=== PATIENT | female | born 1965 | race Caucasian/White ===

== ENCOUNTER 2022-10-19 12:59 | Outpatient (CLI) | payer OTHER, SELFPAY ==
[2022-10-19 19:58] LABS: Basophils Percent Auto 0.6 % (0.2-1.2); Eosinophils Absolute Auto 0.1 K/mm3 (0-0.3); Eosinophils Percent Auto 0.9 % (0-4.4); Hematocrit 39.5 % (37.0-47.0); Immature Granulocyte Absolute 0.08 K/mm3 (0.00-0.031); Immature Granulocyte Percent A 1.2 % (0-0.5); Lymphocytes Absolute Auto 1.89 K/mm3 (0.9-3.2); Lymphocytes Percent Auto 28.9 % (18.3-44.2); Mean Corpuscular HGB Conc 32.9 g/dl (32-36); Mean Corpuscular Hemoglobin 31.5 pg (26-34); Mean Corpuscular Volume 95.6 fl (80-100); Mean Platelet Volume 12.5 fl (7.4-10.4); Monocytes Absolute Auto 0.5 K/mm3 (0.1-0.6); Monocytes Percent Auto 7.5 % (2.6-8.5); Neutrophils Percent Auto 60.9 % (45.5-73.1); Platelet Count Result 219 k/mm3 (150-375); Red Blood Count 4.13 M/mm3 (4.2-5.4); Red Cell Distribution Width 12.4 % (11.5-14.5); White Blood Count 6.6 K/mm3 (4.5-10.0)
[2022-10-19 20:05] LABS: Alanine Aminotransferase 24 U/L (6-35); Albumin Level 4.4 g/dL (3.5-5.1); Alkaline Phosphatase 82 U/L (38-126); Anion Gap 4 mmol/L (8-16); Aspartate Amino Transferase 46 U/L (14-36); Bilirubin,Total 0.6 mg/dL (0.2-1.3); Blood Urea Nitrogen 13 mg/dL (7-17); Calcium 9.2 mg/dL (8.4-10.2); Carbon Dioxide 31 mmol/L (22-30); Chloride 102 mmol/L (98-107); Cholesterol 168 mg/dL (0-200); Estimated Glomerular Filt Rate > 60; Glucose 85 mg/dL (65-110); HDL Direct 69 mg/dL; Potassium 4.5 mmol/L (3.4-5.0); Sodium 137 mmol/L (137-145); Triglycerides 58 mg/dL (<150)
[2022-10-19 20:16] LABS: LDL Cholesterol Direct 62 mg/dL
== END 2022-10-19 13:00 | disposition home or self-care (01) ==
PROVIDERS: PCP Family Medicine; Visit Provider Family Medicine
DX: Z00.00 Encounter for general adult medical examination without abnormal findings (principal)
CPT/HCPCS: 36415; 80053; 80061; 85025

== ENCOUNTER 2023-12-16 14:37 | Outpatient (CLI) | payer OTHER, SELFPAY ==
[2023-12-16 18:34] LABS: Hematocrit 42.9 % (37.0-47.0); Hemoglobin 13.4 g/dL (12.0-15.0); Mean Corpuscular HGB Conc 31.2 g/dl (32-36); Mean Corpuscular Hemoglobin 30.5 pg (26-34); Mean Corpuscular Volume 97.7 fl (80-100); Mean Platelet Volume 12.7 fl (7.4-10.4); Platelet Count Result 238 k/mm3 (150-375); Red Blood Count 4.39 M/mm3 (4.2-5.4); White Blood Count 7.2 K/mm3 (4.5-10.0)
[2023-12-16 19:27] LABS: Alanine Aminotransferase 25 U/L (6-35); Albumin Level 4.7 g/dL (3.5-5.1); Alkaline Phosphatase 76 U/L (38-126); Anion Gap 6 mmol/L (4-12); Aspartate Amino Transferase 50 U/L (14-36); Bilirubin,Total 0.6 mg/dL (0.2-1.3); Blood Urea Nitrogen 17 mg/dL (7-17); Calcium 9.2 mg/dL (8.4-10.2); Carbon Dioxide 29 mmol/L (22-30); Chloride 103 mmol/L (98-107); Cholesterol 176 mg/dL (0-200); Estimated Glomerular Filt Rate > 60; Glucose 83 mg/dL (65-110); HDL Direct 83 mg/dL; Potassium 4.1 mmol/L (3.4-5.0); Sodium 138 mmol/L (137-145); Triglycerides 60 mg/dL (<150)
[2023-12-16 19:38] LABS: LDL Cholesterol Direct 69 mg/dL
[2023-12-16 19:40] LABS: Vitamin D 25 Hydroxy 53.9 ng/mL
[2023-12-16 20:30] LABS: Folic Acid 11.8 ng/mL (2.76->20)
== END 2023-12-16 14:38 | disposition home or self-care (01) ==
LOC: ANHBWCLAB 14:39
PROVIDERS: PCP Nurse Practitioner Adult Health; Visit Provider Family Medicine
DX: Z00.00 Encounter for general adult medical examination without abnormal findings (principal)
CPT/HCPCS: 36415; 80053; 80061; 82306; 82607; 82746; 85027

== ENCOUNTER 2025-01-12 10:20 | Outpatient (CLI) | payer OTHER, SELFPAY ==
--- OUTSIDE RECORDS SUMMARY | 2025-01-12 10:31 | XMS_ITS | Clinical Summary ---
Author Organization [facility] Address [address] [place] [address] Phone Care Team Providers Care Field Crop Farmer Name Role Phone Sánchez Reyna MD Primary Care Provider [phone] Allergies No known active allergies Medications Progesterone (PROMETRIUM) 100 MG Capsule 1 Active methylPREDNISol one (Medrol) 4 MG Tablet Therapy PackIndications :Allergic reaction, initial encounter Use as per instructions on package. 21 Tablet 2 Active Active Problems No known active problems Immunizations Immunization Administration Dates Next Due Covid-19, Mrna, Lnp-s, Pf, 1 00 Mcg Or 50 Mcg Dose (MODERNA) 05/23/2021,09/09/2020,08/05/2020 Social History Tobacco Use Types Packs/Day Years Used Date Smoking Tobacco: Never Smokeless Tobacco: Never Alcohol Use Standard Drinks/Week Comments Yes 0 (1 standard drink = 0.6 oz pur e alcohol) not much Comments No Sex and Gender Information Value Date Recorded Sex Assigned at Not on file Legal Sex Female 8:49 PM CDT Gender Identity Not on file Sexual Orientation Not on file Last Filed Vital Signs Vital Sign Reading Time Taken Comments Blood Pressure 116/72 11/17/2021 4:10 PM CDT Pulse 63 11/17/2021 4:10 PM CDT Temperature 36.5 C (97.7 F) 11/17/2021 4:10 PM CDT Respiratory Rate 16 11/17/2021 4:10 PM CDT Oxygen Saturation 100% 11/17/2021 4:10 PM CDT Inhaled Oxygen Concentration - - Weight - - Height - - Body Mass Index - - Plan of Treatment Health Maintenance Due Date Last Done Comments Hepatitis C Virus (HCV) Screening 1967 TdaP Immunization 1967 Hepatitis B Immunization (1 of 3 - 19+ 3-dose series) 1986 Pap Smear 1988 Cervical Cancer Screening (CCS) 1997 HPV/Cotest 1997 Cologuard 2012 Pneumococcal Immunization (50+ years) (1 of 1 - PCV) 2017 Zoster Immunization (1 of 2) 2017 Immunochemical Fecal Occult Blood 02/14/2022 02/14/2021, 02/10/2020, 02/02/2019 SARS-COV-2 Immunization ( season) 2024 04/24/2023, 05/23/2021, 09/09/2020, Additional history exists Influenza Immunization (Season Ended) 2025 Mammogram 08/17/2025 08/17/2024, 07/15, 06/06/2022, Additional history exists Colonoscopy 08/29/2033 08/29/2023 Colorectal Cancer Screening 08/29/2033 Respiratory Syncytial Virus (RSV) Immunization (Adult) (1 - 1-dose 75+ series) 2042 DTaP/Tdap/Td Immunization Discontinued 05/14/2008 Human Papillomavirus (HPV) Immunization Aged Out No longer eligible based on patient's age to complete this topic Meningococcal Immunization (ACWY) Aged Out No longer eligible based on patient's age to complete this topic Rotavirus Immunization Aged Out No lo nger eligible based on patient's age to complete this topic Procedures Procedure Name Priority Date/Time Associated Diagnosis Comments HOOD SCREENING BILATERAL DIGITAL W CAD W KARAN Routine 08/17/2024 4:33 PM MOBILE PHONE SALESPERSON Visit for screening mammogram from Last 3 Months or Most Recently Relevant to Health Maintenance Results * HOOD SCREENING BILATERAL DIGITAL W CAD W KARAN (08/17/2024 4:33 PM MOBILE PHONE SALESPERSON) Anatomical Region Laterality Modality breast Bilateral Mammography 08/17/2024 4:10 PM MOBILE PHONE SALESPERSON Narrative 08/19/2024 2:23 PM MOBILE PHONE SALESPERSON - HOOD SCREENING BILATERAL DIGITAL W CAD W KARAN BILATERAL DIGITAL SCREENING MAMMOGRAM 3D/2D WITH CAD WITH MEDIOLATERAL OBLIQUE CRANIOCAUDAL: 08/17/2024 The study was acquired using digital technology and interpreted from soft copy. Current study was also evaluated with ICAD version 7.2. 2D digital mammographic views, as well as 3D digital tomosynthesis were performed in the CC and MLO projections. CLINICAL: Routine screening. Patient has no complaints. No personal history of cancer. No family history of breast cancer. COMPARISONS: Comparison is made to exams dated: 07/30/2023, 06/06/2022, and [facility]. BREAST TISSUE:There are scattered areas of fibroglandular density. FINDINGS: No significant masses, calcifications, or other findings are seen in either breast. There has been no significant interval change. IMPRESSION: NEGATIVE There is no mammographic evidence of malignancy. A 1 year screening mammogram is recommended. A letter will be sent to the patient with these results. The patient will be entered into a reminder system with a target due date of 1 year for her next screening exam. Electronically signed by: Vamshi keyes/jose:08/19/2024 10:33:53 Metaphysicist(s): RT Ozzy(R)(M), [facility] letter sent: Normal Exam Reading location: MIN Mammogram BI-RADS: Category 1: Negative Procedure Note Vamshi Magana MD - 08/19/2024 - HOOD SCREENING BILATERAL DIGITAL W CAD W KARAN BILATERAL DIGITAL SCREENING MAMMOGRAM 3D/2D WITH CAD WITH MEDIOLATERAL OBLIQUE CRANIOCAUDAL: 08/17/2024 The study was acquired using digital technology and interpreted from soft copy. Current study was also evaluated with ICAD version 7.2. 2D digital mammographic views, as well as 3D digital tomosynthesis were performed in the CC and MLO projections. CLINICAL: Routine screening. Patient has no complaints. No personal history of cancer. No family history of breast cancer. COMPARISONS: Comparison is made to exams dated: 07/30/2023, 06/06/2022, and 03/30/2021 [facility]. BREAST TISSUE:There are scattered areas of fibroglandular density. FINDINGS: No significant masses, calcifications, or other findings are seen in either breast. There has been no significant interval change. IMPRESSION: NEGATIVE There is no mammographic evidence of malignancy. A 1 year screening mammogram is recommended. A letter will be sent to the patient with these results. The patient will be entered into a reminder system with a target due date of 1 year for her next screening exam. Electronically signed by: Vamshi keyes/jose:08/19/2024 10:33:53 Metaphysicist(s): RT Ozzy(R)(M), [facility] letter sent: Normal Exam Reading location: MIN Mammogram BI-RADS: Category 1: Negative us Sánchez Reyna MD IMG MAMMO ORDERABLES Final Resu lt from Last 3 Months or Most Recently Relevant to Health Maintenance Insurance [facility] Care Teams Field Crop Farmer Relationship Specialty Start Date End Date Sánchez Reyna MD [address] [place] [id number] PCP - General Family Medicine 07/30/23
--- OUTSIDE RECORDS SUMMARY | 2025-01-12 10:31 | XMS_ITS | Clinical Summary ---
Author Organization [facility] Address [address] [place] [address] Care Team Providers Care Soil Chemist Name Role Phone Unavailable Primary Care Provider Unavailabl e Source Comments [facility],non-owned Affiliates and Associated Physician Practices is amultiple site organization consisting of ambulatory clinics and hospital sitesin [place], [place], [place] and [place]. This disclosure is being madepursuant to the Care Everywhere program and may not contain all information available regarding this patient. Last updated 18.[facility] Social History Tobacco Use Types Packs/Day Years Used Date Smoking Tobacco: Never Assessed Comments Unknown Sex and Gender Information Value Date Recorded Sex Assigned at Not on file Legal Sex Female 10:58 AM CDT Gender Identity Not on file Sexual Orientation Not on file Plan of Treatment Health Maintenance Due Date Last Done Comments COLOGUARD (AGES 45-75) - COL ON CA SCREENING 1967 COLON MONITORING 1967 COLONOSCOPY - COLON CA SCREENING 1967 CT COLONOGRAPHY - COLON CA SCREENING 1967 Colorectal Cancer Screening 1967 FIT - COLON CA SCREENING 1967 FLEX SIG - COLON CA SCREENING 1967 LIPID TESTING 1967 MAMMOGRAM 1967 HIV SCREENING 1982 HEPATITIS C SCREENING 04/14/1985 DTAP/TDAP/TD VACCINES (1 - Tdap) 1986 HEPATITIS B VACCINE (1 of 3 - 19+ 3-dose series) 1986 PNEUMOCOCCAL VACCINE 50+ (1 of 1 - PCV) 2017 ZOSTER VACCINE (1 of 2) 2017 COVID-19 VACCINE ( - 2023-2 5 season) 2024 DEPRESSION SCREENING 07/15/2024 INFLUENZA VACCINE (Season Ended) 2025 HIB VACCINE Aged Out No longer eligi ble based on patient's age to complete this topic HPV VACCINE Aged Out No longer eligi ble based on patient's age to complete this topic MENINGOCOCCAL (Group B) VACC INE SHARED DECISION-MAKING Aged Out No longer eligibl e based on patient's age to complete this topic MENINGOCOCCAL GROUPS A/C/Y/W VACCINE Aged Out No longer eligible b ased on patient's age to complete this topic Insurance [facility]
--- OUTSIDE RECORDS SUMMARY | 2025-01-12 10:31 | XMS_ITS | Encounter Summary ---
Author Organization [facility] Address [address] [place] [address] Care Team Providers Care Quartz Cutter Name Role Phone Unavailable Primary Care Provider Unavailabl e Encounter Details Date Type Department Care Team (Late st Contact Info) Description 11/10/2021 Lab Requisition [facility] [address] [place] [id number] Dannie Jackson MD [facility] [address] [address] Social History Tobacco Use Types Packs/Day Years Used Date Smoking Tobacco: Never Assessed Comments Unknown Sex and Gender Information Value Date Recorded Sex Assigned at Not on file Legal Sex Female 10:58 AM CDT Gender Identity Not on file Sexual Orientation Not on file documented as of this encounter Plan of Treatment Not on file documented as of this encounter Procedures Procedure Name Priority Date/Time Associated Diagnosis Comments DERMATOPATHOLOGY Routine 11/08/2021 12:0 0 AM CDT documented in this encounter Results * DERMATOPATHOLOGY (11/08/2021 12:00 AM CDT) Case Report Dermatopathology Report Case: [id number] Authorizing Provider: Dannie Jackson MD Collected: 11/08/2021 12:00 AM Ordering Location: [facility] Received: 11/10/2021 11:10 AM Pathologist: Daphnie Enrique MD Specimen: Skin, mid upper back 2 4:29 PM CDT DERMATOPATHOLOGY LABORATORY Final Diagnosis Specimen A. 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 2 4:29 PM CDT DERMATOPATHOLOGY LABORATORY Gross Description Specimen A: Received is one formalin filled container labeled with the patient's name and designated mid upper back. The specimen consists of a shave biopsy measuring [id number]. Jar 0. 4:29 PM CDT DERMATOPATHOLOGY LABORATORY Microscopic Description Specimen A. SKIN, mid upper back: This is a compound nevus. There is melanin pigment in the stratum corneum. There is architectural disorder characterized by a lentiginous proliferation of melanocytes between irregular nevus nests of cells along the dermal epidermal junction. There is underlying fibroplasia of the papillary dermis. The intradermal component is bland in appearance and matures with depth. (Compound Narciso's Nevus or Compound Dysplastic Nevus) 4:29 PM CDT DERMATOPATHOLOGY LABORATORY Disclaimer An external and internal positive and negative controls are appropriate for the histochemical, immunohistochemical and immunofluorescence stain(s) in this case (if any), except where stated explicitly. The performance characteristics of the stain(s) cited in this report were developed and its performance characteristic determined by the Dermatopathology Laboratory at [facility], directed by Dr. Oz Sanchez. These tests need not be, and therefore are not, approved by the [place] Food and Drug Administration. The tests are used for clinical purposes. Billing Codes Specimen Charges Stain Charges 22749 1 2 4:29 PM CDT DERMATOPATHOLOGY LABORATORY Embedded Images 2 4:29 PM CDT DERMATOPATHOLOGY LABORATORY Pathology/Cytolog y TISSUE SPECIMEN FROM SKIN / Unknown 11/08/2021 11/10/2021 11:10 AM CDT Dannie Jackson MD LAB - PATHOLOGY/CYTOLOGY ORDERAB LES Final Result DERMATOPATHOLOGY LABORATORY [facility] - Department of Dermatology [address], [address] [phone] documented in this encounter Visit Diagnoses Not on filedocumented in this encounter
--- OUTSIDE RECORDS SUMMARY | 2025-01-12 10:31 | XMS_ITS | Clinical Summary ---
Author Organization [facility] [address] Address [address] [place] [address] Care Team Providers Care Luggage Liner Name Role Phone Sánchez Reyna MD Primary Care Provider [phone] Eb Grant MD Unavailable [phone] Allergies No known active allergies Medications traZODone (DESYREL) 50 mg tablet Take 1 tablet (50 mg total) by mouth nightly as needed 3 Active UNABLE TO FIND 4 (four) times a week Med Name: E2-E3 estrogen cream Active cholecalciferol 25 mcg (1,000 unit) tablet Take 1 tablet (1,000 Units total) by mouth daily Active cream base no.9, bulk, cream 0.2% Testosterone cream. Apply 1 mL to inner wrist or thigh daily 30 g 1 5 Active cream base no.52, bulk, cream 0.2% Estrogen cream E2-E3. Apply 1mL to inner wrist or thigh daily or as needed 30 g 1 5 Active progesterone (PROMETRIUM) 100 mg capsuleIndicati ons:Endometrial Hyperplasia Prevention TAKE 1 CAPSULE AT BEDTIME, DAYS 1-12 OF EACH MONTH. 36 capsule 3 5 Active Active Problems Problem Noted Date Diagnosed Date Hormone replacement therapy 10/19/2024 Assessment & Plan (10/19/2024 2:27 AM CDT): Risks and benefits of hormone replacement (HRT) for vasomotor symptoms related to menopause discussed. Patient aware risks associated with HRT include increased risk of blood clots, heart attack, stroke, and increased risk of breast cancer. Patient verbalizes understanding of risk and benefits and wishes to proceed with HRT. Encounter for screening colonoscopy 07/02/2023 Aftercare following left hip joint replacement s anna 01/02/2023 Resolved Problems Problem Noted Date Diagnosed Date Resolved Date Primary osteoarthritis of left hip 12/12/2022 01/02/2023 Encounters Date Type Department Care Team Description 10/14/2024 2:15 PM CDT Office Visit [facility] [address] [place] [address] Lisa Bae NP Well woman exam (Primary Dx); Hormone replacement therapy 10/14/2024 Telephone [employer] 4 [facility] [address] [place] [address] Lisa Bae NP from Last 3 Months Surgical History Surgery Date Site/Laterality Comments TOTAL HIP ARTHROPLASTY Left COLONOSCOPY 08/29/2023 Medical History Medical History Date Comments GERD (gastroesophageal reflux disease) Irregular menses Family History Medical History Relation Name Comments No Known Problems Father No Known Problems Mother Cancer Paternal Grandfather Relation Name Status Comments Father Mother Paternal Grandfather Social History Tobacco Use Types Packs/Day Years Used Date Smoking Tobacco: Never Smokeless Tobacco: Never Tobacco Cessation:Counseling Given: Not Answered Alcohol Use Standard Drinks/Week Comments Yes 0 (1 standard drink = 0.6 oz pur e alcohol) Social Humiliation, Afraid, Rape, and Kick questionnair e Answer Date Recorded Within the last year, have y ou been afraid of your partner or ex-partner? No 07/01/2023 Within the last year, have y ou been humiliated or emotionally abused in other ways by your partner or ex-partner? No Within the last year, have y ou been kicked, hit, slapped, or otherwise physically hurt by your partner or ex-partner? No 07/01/2023 Within the last year, have y ou been raped or forced to have any kind of sexual activity by your partner or ex-partner? No 07/01/2023 AUDIT-C Answer Date Recorded Q1: How often do you have a drink containing alc ohol? 2-4 times a month 08/28/2023 Q2: How many drinks containi ng alcohol do you have on a typical day when you are drinking? 1 or 2 08/28/2023 Q3: How often do you have si x or more drinks on one occasion? Never 08/28/2023 PHQ-2 Answer Date Recorded PHQ-2 Total Score (If total score is 3 or more points, staff should administer the PHQ-9) 0 10/14/2024 Personal Safety Answer Date Recorded Have you ever been in or are you currently in a harmful physical or emotional relationship or is someone making you feel afraid or unsafe? Denies 08/29/2023 Comments No Sex and Gender Information Value Date Recorded Sex Assigned at Not on file Legal Sex Female 9:59 AM MANAGER COST Gender Identity Not on file Sexual Orientation Not on file Obstetrics History Para Term AB IAB SAB Ectopic Multiple Livin g Live Births 0 0 0 0 0 0 0 0 0 0 0 Last Filed Vital Signs Vital Sign Reading Time Taken Comments Blood Pressure 108/72 10/14/2024 2:09 PM CDT Pulse 78 07/09/2024 10:57 AM MANAGER COST Temperature 36.9 C (98.5 F) 07/09/2024 10:57 AM MANAGER COST Respiratory Rate 20 07/09/2024 10:57 AM MANAGER COST Oxygen Saturation 96% 07/09/2024 10:57 AM MANAGER COST Inhaled Oxygen Concentration - - Weight 67.1 kg (148 lb) 10/14/2024 2:09 PM CDT Height 160 cm (5' 3) 10/14/2024 2:09 PM CDT Body Mass Index 26.22 10/14/2024 2:09 PM CDT Plan of Treatment Health Maintenance Due Date Last Done Comments Hepatitis C Screening 1965 Hepatitis B Screening 1985 DTaP/Tdap/Td Vaccine (1 - Tdap) 05/15/2008 05/14/2008 Zoster Vaccine (1 of 2) 2017 Covid-19 Vaccine ( season) 2024 05/23/2021, 09/09/2020, 08/05/2020 Cervical Cancer Screening 07/01/2024 07/01/2023, 09/2020 Influenza Vaccine (#1) 2025 Breast Cancer Screening-Mammogram 08/17/2025 08/17/2024, 08/17/2024, 07/30/2023, Additional history exists Depression Screening 10/14/2025 10/14/2024, 02/22/2022, 02/14/2021, Additional history exists Regular Well Visit/Exam 18-64 10/14/2025 10/14/2024, 02/22/2022, 02/14/2021, Additional history exists Colon Cancer Screening-Colonoscopy 08/29/2033 08/29/2023 Colon Cancer Screening-CT Colonography Discontinued 08/29/2023 Colon Cancer Screening-DNA Stool Discontinued 08/29/2023 Colon Cancer Screening-FIT Discontinued 08/29/2023 Colon Cancer Screening-Sigmoidoscopy Discontinued 08/29/2023 Pneumococcal vaccine <65 Aged Out No longer eligible based on patient's age to complete this topic Medical Devices Implanted Type Area Snow Removal Supervisor Device Identifier Shelf Expiration Date Model / Serial / Lot Depuy [employer] [place] 52mm 36mm Hip Neutral Liner Acetabular Altrx Sterile Latex Free [id number] - [id number] Implanted:Qty: 1 on 12/24/2022 by Eb Grant MD at [facility] Left: Hip [employer] [id number] 10/13/2027 [id number] / / [id number] Depuy [employer] [place] 52mm Sector Hip Shell Acetabular Gription Sterile Latex Free [id number] - [id number] Implanted:Qty: 1 on 12/24/2022 by Eb Grant MD at [facility] Left: Hip [employer] [id number] 09/11/2032 [id number] / / [id number] Depuy [employer] [place] 6.5mm 35mm Acetabular Cancellous Screw Bone Sterile 1217-35-500 - [id number] Implanted:Qty: 1 on 12/24/2022 by Eb Grant MD at [facility] Left: Hip [employer] [id number] 08/14/2032 1217-35-500 / / [id number] Depuy [employer] Actis 105mm Collar Hip 5 Standard Offset Stem Femoral 1010-11-050 - [id number] Implanted:Qty: 1 on 12/24/2022 by Eb Grant MD at [facility] Left: Hip [employer] [id number] 05/14/2032 1010-11-050 / / [id number] Depuy [employer] Inc Articul/[place] 36mm Cementless Hip +5mm 06/27 Taper Head Femoral Latex Free [id number] - [id number] Implanted:Qty: 1 on 12/24/2022 by Eb Grant MD at [facility] Left: Hip [employer] [id number] 09/12/2027 [id number] / / [id number] Procedures Procedure Name Priority Date/Time Associated Diagnosis Comments COLONOSCOPY 08/29/2023 9:11 AM MANAGER COST PAP AND HPV, REFLEX TO HPV GENOTYPES Routine 07/01/2023 3:03 PM MANAGER COST Well woman exam with routine gynecological exam MAMMOGRAPHY Schedule Routine, Read Routine (OP Routine) 06/06/2022 from Last 3 Months or Most Recently Relevant to Health Maintenance Results * COLONOSCOPY (08/29/2023 9:11 AM MANAGER COST) Anatomical Region Laterality Modality Other Narrative Procedure Note Cherry Martinez MD - 08/29/2023 9:11 AM CST [facility] Patient Name: Antonette Dalton Procedure Date: 08/29/2023 9:11 AM Date of : 1965 Admit Type: Outpatient Age: 58 Gender: Female Attending MD: Cherry Martinez M.D. Room: [facility] END[facility] 2 Note Status: Finalized Patient Profile: This is a 58 year old female with no significantpmhx here for colonoscopy for colon cancer screening. No family hx of colon cancer and no priorcolonoscopies. Procedure: Colonoscopy Indications: Screening for colorectal malignant neoplasm, Thisis the patient's first colonoscopy Referring MD: Sánchez Reyna M.D. Providers: Cherry Martinez M.D. Impression: - Melanosis in the colon. - External and internal hemorrhoids. - No specimens collected. Recommendation: - Patient has a contact number available for emergencies. The signs and symptoms of potential delayed complications were discussed with thepatient. Return to normal activities tomorrow. Written discharge instructions were provided to thepatient. - Discharge patient to home (with escort). - Resume previous diet. - Continue present medications. - Avoid stimulant laxatives such as Senna - Repeat colonoscopy in 7 years for screeningpurposes. - Return to primary care physician as previously scheduled. Medicines: Monitored Anesthesia Care Complications: No immediate complications. Estimated Blood Loss: Estimated blood loss: none. Estimated blood loss:none. Procedure: Pre-Anesthesia Assessment: - Prior to the procedure, a History and Physicalwas performed, and patient medications and allergieswere reviewed. The patient is competent. The risks and benefits of the procedure and the sedation optionsand risks were discussed with the patient. Allquestions were answered and informed consent was obtained. Patient identification and proposed procedure were verified by the physician, the mental hygienist and the security systems technician in the endoscopy suite. Mental Status Examination: normal. Prophylactic Antibiotics: The patient does not require prophylactic antibiotics. Prior Anticoagulants: The patient has taken no anticoagulant or antiplatelet agents. Afterreviewing the risks and benefits, the patient was deemed in satisfactory condition to undergo the procedure.The anesthesia plan was to use monitored anesthesiacare (MAC). Immediately prior to administration of medications, the patient was re-assessed foradequacy to receive sedatives. The heart rate, respiratory rate, oxygen saturations, blood pressure, adequacyof pulmonary ventilation, and response to care were monitored throughout the procedure. The physical status of the patient was re-assessed after the procedure. The benefits, risks and alternatives of theprocedure and sedation were discussed and informed consentwas obtained. All questions were answered. Please referto the signed informed consent document in the medical record. The bowel preparation used was Miralax and bisacodyl tablets via split dose instruction. The scope was passed under direct vision. The Pediatric Colonoscope PCF-H190L [id number] was introducedthrough the anus and advanced to the the cecum, identifiedby appendiceal orifice and ileocecal valve. The colonoscopy was performed without difficulty. The patient tolerated the procedure well. The qualityof the bowel preparation was good. Bowel prep was administered using a split dose. Findings: The perianal and digital rectal examinations were normal. A diffuse area of severe melanosis was found in the entire colon. External and internal hemorrhoids were found during retroflexion and during endoscopy. Cherry Martinez M.D. 08/29/2023 10:19:39 AM Number of Addenda: 0 Note Initiated On: 08/29/2023 9:11 AM Procedure Code(s): --- Professional --- G0121, Colorectal cancer screening; colonoscopy on individual not meeting criteria for high risk --- Technical --- G0121, Colorectal cancer screening; colonoscopy on individual not meeting criteria for high risk Diagnosis Code(s): --- Professional --- Z12.11, Encounter for screening for malignant neoplasm of colon K63.89, Other specified diseases of intestine --- Technical --- Z12.11, Encounter for screening for malignant neoplasm of colon K63.89, Other specified diseases of intestine CPT copyright 2020 [employer]. All rights reserved. The codes documented in this report are preliminary and upon registration coordinator reviewmay be revised to meet current compliance requirements. Recognized by the [employer] for promoting quality in endoscopy us Cherry Martinez MD ENDOSCOPY PROCEDURES Final Resul t * Pap and HPV, reflex to HPV Genotypes (07/01/2023 3:03 PM MANAGER COST) Clinical indication Comment [facility] - 01 Comment:NEGATIVE FOR INTRAEP ITHELIAL LESION OR MALIGNANCY. Specimen adequacy: Comment [facility] - 01 Comment: Satisfactory for evaluation. Endocervical and/or squamous metaplastic cells (endocervical component) are present. Clinician provided ICD10 Comment [facility] - 01 Comment:Z01.419 Performed by Comment [facility] - 01 Comment:Lionel Hadley, Cytot echnologist (ASCP) . . [facility] - 01 Note: Comment [facility] - 01 Comment: The Pap smear is a screening test designed to aid in the detection of premalignant and malignant conditions of the uterine cervix. It is not a diagnostic procedure and should not be used as the sole means of detecting cervical cancer. Both false-positive and false-negative reports do occur. Test methodology Comment [facility] - 01 Comment: This liquid based ThinPrep(R) pap test was screened with the use of an image guided system. HPV Aptima Negative Negative [facility] 02 Comment: This nucleic acid amplification test detects fourteen high-risk HPV types (16,18,31,33,35,39,45,51,52,56,58,59,66,68) without differentiation. HPV Genotype Reflex Comment [facility] - 01 Comment:Criteria not met, HP V Genotype not performed. Thin prep 07/01/2023 3:03 PM MANAGER COST 07/02/2023 Narrative [facility] - 07/03/2023 2:11 PM MANAGER COST Performed at: 01 - [facility] [id number] Sales And Marketing Intern: Sangeetha Mackey MD, Phone: [phone] Performed at: 02 - [facility] [id number] Sales And Marketing Intern: Sangeetha Mackey MD, Phone: [phone] Specimen Comment: No. of containers..01 ThinPrep Vial us Lolis Rendon NP LAB CYTOLOGY ORDERABLES Final Re sult [facility] - 01 [facility] 02 * MAMMOGRAPHY (06/06/2022) Anatomical Region Laterality Modality Breast Mammography Becky Ann TIME CYCLE OPERATOR IMG MAMMO PROCEDURES Demi l Result from Last 3 Months or Most Recently Relevant to Health Maintenance Insurance [facility] OPEN ACCESS Advance Directives For more information, please contact: [phone] * Full Code (Latest Code Status on File) Date Activated Date Inactivated Comments 08/29/2023 9:13 AM 08/29/2023 2:54 PM * Full Code Date Activated Date Inactivated Comments 08/29/2023 9:13 AM 08/29/2023 9:13 AM * Full Code Date Activated Date Inactivated Comments 12/24/2022 10:42 AM 12/24/2022 7:47 PM Care Teams Luggage Liner Relationship Specialty Start Date End Date Sánchez Reyna MD PCP - General Family Practice 12/05/22 Eb Grant MD [address] [place] [address] [place] [address] Surgeon Orthopedic Surgery 12/24/22
--- OUTSIDE RECORDS SUMMARY | 2025-01-12 10:31 | XMS_ITS | Referral Summary ---
Author Organization [facility] B Address [address] [place] [address] Care Team Providers Care Tip Out Worker Name Role Phone Sánchez Reyna MD Primary Care Provider [phone] Eb Grant MD Unavailable [phone] Encounters Date Type Department Care Team Description 10/14/2024 Telephone [employer] [address] [facility] [address] [place] [address] Lisa Bae NP 10/14/2024 2:15 PM CDT Office Visit [employer] [address] [place] [address] [address] [place] [address] Lisa Bae NP Well woman exam (Primary Dx); Hormone replacement therapy from Last 3 Months Allergies No known active allergies Medications traZODone [...] Primary osteoarthritis of left hip 12/12/2022 01/02/2023 Social History Tobacco Use Types Packs/Day Years [...] on file Legal Sex Female 9:59 AM MOISTURE CONDITIONER OPERATOR Gender Identity Not on file Sexual Orientation Not on file Last Filed Vital Signs Vital Sign Reading Time Taken Comments Blood Pressure 108/72 10/14/2024 2:09 PM CDT Pulse 78 07/09/2024 10:57 AM MOISTURE CONDITIONER OPERATOR Temperature 36.9 C (98.5 F) 07/09/2024 10:57 AM MOISTURE CONDITIONER OPERATOR Respiratory Rate 20 07/09/2024 10:57 AM MOISTURE CONDITIONER OPERATOR Oxygen Saturation 96% 07/09/2024 10:57 AM MOISTURE CONDITIONER OPERATOR Inhaled Oxygen Concentration - - Weight 67.1 kg (148 lb) 10/14/2024 2:09 PM CDT Height 160 cm (5' 3) 10/14/2024 2:09 PM CDT Body Mass Index 26.22 10/14/2024 2:09 PM CDT Plan of Treatment Not on file Medical Devices Implanted Type Area Jail Officer Device Identifier Shelf Expiration Date Model / Serial / Lot Depuy [employer] [place] 52mm 36mm Hip Neutral Liner Acetabular Altrx Sterile Latex Free [id number] - [id number] Implanted:Qty: 1 on 12/24/2022 by Eb Grant MD at [facility] Left: Hip [employer]uy [employer] Inc [id number] 10/13/2027 [id number] / / [id number] Dep[employer] [place] 52mm Sector Hip Shell Acetabular Gription Sterile Latex Free [id number] - [id number] Implanted:Qty: 1 on 12/24/2022 by Eb Grant MD at [facility] Left: Hip [employer]uy [employer] Inc [id number] 09/11/2032 [id number] / / [id number] Depuy [employer] [place] 6.5mm 35mm Acetabular Cancellous Screw Bone Sterile 1217-35-500 - [id number] Implanted:Qty: 1 on 12/24/2022 by Eb Grant MD at [facility] Left: Hip [employer]uy [employer] Inc [id number] 08/14/2032 1217-35-500 / / [id number] Depuy [employer] Actis 105mm Collar Hip 5 Standard Offset Stem Femoral 1010--050 - [id number] Implanted:Qty: 1 on 12/24/2022 by Eb Grant MD at [facility] Left: Hip Depuy [employer] Inc [id number] 05/14/2032 101-050 / / [id number] Depuy [employer] Articul/[place] 36mm Cementless Hip +5mm 06/27 Taper Head Femoral Latex Free [id number] - [id number] Implanted:Qty: 1 on 12/24/2022 by Eb Grant MD at [facility] Left: Hip [employer]uy [employer] Inc [id number] 09/12/2027 [id number] / / [id number] Procedures Procedure Name Priority Date/Time Associated Diagnosis Comments COLONOSCOPY 08/29/2023 9:11 AM MOISTURE CONDITIONER OPERATOR PAP AND HPV, REFLEX TO HPV GENOTYPES Routine 07/01/2023 3:03 PM MOISTURE CONDITIONER OPERATOR Well woman exam with routine gynecological exam MAMMOGRAPHY Schedule Routine, Read Routine (OP Routine) 06/06/2022 from Last 3 Months or Most Recently Relevant to Health Maintenance Results * COLONOSCOPY (08/29/2023 9:11 AM MOISTURE CONDITIONER OPERATOR) Anatomical Region Laterality Modality Other Narrative Procedure Note Cherry Martinez MD - 08/29/2023 9:11 AM CST [facility] Patient Name: Antonette Dalton Procedure Date: 08/29/2023 9:11 AM Date of : 1965 Admit Type: Outpatient Age: 58 Gender: Female Attending MD: Cherry Martinez M.D. Room: [facility] ENDOSCOPY ROOM 2 Note Status: Finalized Patient [...] procedure were verified by the physician, the latex ribbon machine operator and the fish and wildlife technician in the endoscopy suite. Mental Status [...] under direct vision. The Pediatric Colonoscope PCF-H190L [id number] was introducedthrough the anus and advanced to [...] in this report are preliminary and upon helicopter utility aircrewman reviewmay be revised to meet current compliance requirements. Recognized by the [employer] for promoting quality in endoscopy Cherry Martinez MD ENDOSCOPY PROCEDURES Final Resul t * Pap and HPV, reflex to HPV Genotypes (07/01/2023 3:03 PM MOISTURE CONDITIONER OPERATOR) Clinical indication Comment [facility] - 01 Comment:NEGATIVE [...] not performed. Thin prep 07/01/2023 3:03 PM MOISTURE CONDITIONER OPERATOR 07/02/2023 Narrative [facility] - 07/03/2023 2:11 PM MOISTURE CONDITIONER OPERATOR Performed at: - [address] [id number] Jewel Oliving Machine Operator: Sangeetha Mackey MD, Phone: [phone] Performed at: - [address] [id number] Jewel Oliving Machine Operator: Sangeetha Mackey MD, Phone: [phone] Specimen Comment: No. of containers..01 ThinPrep Vial us Lolis Rendon NP LAB CYTOLOGY ORDERABLES Final Re sult [facility] - 01 [facility] 02 * MAMMOGRAPHY (06/06/2022) Anatomical Region Laterality Modality Breast Mammography us Becky Ann TRANSIT PLANNER IMG MAMMO PROCEDURES Demi l Result from Last 3 Months or Most Recently Relevant to Health Maintenance Insurance [employer] OPEN ACCESS Advance Directives For more information, please contact: [phone] * Full Code (Latest Code Status on File) Date Activated Date Inactivated Comments 08/29/2023 9:13 AM 08/29/2023 2:54 PM * Full Code Date Activated Date Inactivated Comments 08/29/2023 9:13 AM 08/29/2023 9:13 AM * Full Code Date Activated Date Inactivated Comments 12/24/2022 10:42 AM 12/24/2022 7:47 PM Care Teams Tip Out Worker Relationship Specialty Start Date End Date Sánchez Reyna MD PCP - General Family Practice 12/05/22 Eb Grant MD [address] [place] [address] DR [place] [address] [place] [address] Surgeon Orthopedic Surgery 12/24/22
[2025-01-12 18:55] LABS: Hematocrit 41.3 % (37.0-47.0); Hemoglobin 12.9 g/dL (12.0-15.0); Mean Corpuscular HGB Conc 31.2 g/dl (32-36); Mean Corpuscular Hemoglobin 30.3 pg (26-34); Mean Corpuscular Volume 96.9 fl (80-100); Platelet Count Result 183 k/mm3 (150-375); Red Blood Count 4.26 M/mm3 (4.2-5.4); White Blood Count 6.5 K/mm3 (4.5-10.0)
[2025-01-12 19:36] LABS: Alanine Aminotransferase 23 U/L (6-35); Albumin Level 4.2 g/dL (3.5-5.1); Alkaline Phosphatase 61 U/L (38-126); Anion Gap 8 mmol/L (4-12); Aspartate Amino Transferase 50 U/L (14-36); Bilirubin,Total 0.7 mg/dL (0.2-1.3); Blood Urea Nitrogen 16 mg/dL (7-17); Calcium 9.2 mg/dL (8.4-10.2); Carbon Dioxide 26 mmol/L (22-30); Chloride 104 mmol/L (98-107); Cholesterol 167 mg/dL (0-200); Estimated Glomerular Filt Rate > 60; Glucose 98 mg/dL (65-110); HDL Direct 67 mg/dL; Potassium 4.3 mmol/L (3.4-5.0); Sodium 138 mmol/L (137-145); Total Protein 7.2 g/dL (6.3-8.2); Triglycerides 77 mg/dL (<150)
[2025-01-12 19:52] LABS: Thyroid Stimulating Hormone 2.880 uIU/mL (0.465-4.680)
== END 2025-01-12 10:21 | disposition home or self-care (01) ==
LOC: ANHBWCLAB 10:22
PROVIDERS: PCP Nurse Practitioner Adult Health; Visit Provider Nurse Practitioner Adult Health
DX: Z00.00 Encounter for general adult medical examination without abnormal findings (principal)
CPT/HCPCS: 36415; 80053; 80061; 84443; 85027